=== PATIENT | female | born 1990 | race Caucasian/White ===

== ENCOUNTER 2019-03-09 04:34 | Emergency (ER) | payer OTHER ==
[~2019-03-09] VITALS: Ht 147.3 cm; Wt 45.4 kg
[2019-03-09 04:36] VITALS: BP 118/56
--- NOTE | 2019-03-09 04:39 | NUR ---
TO LOBBY A/W BED AMBULATORY
--- NOTE | 2019-03-09 05:10 | NUR ---
PT AMBULATED TO BED 4 WITH PARTNER
--- NOTE | 2019-03-09 05:10 | NUR ---
ASSESSMENT COMPLETED AT THIS TIME. PATIENT SITTING UP IN BED. ASSESSMENT NOTE: PATIENT C/O LUQ PAIN. STATES THE PAIN IS LIKE HER PREVIOUS GALLSTONE ATTACKS. PATIENT STATES HX OF GALL STONES. 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 STATES NO OTHER PMH. NO OTHER SYMPTOMS REPORTED. NO FEVER, COUGH, SOB, OR CHEST PAIN.
[2019-03-09] MEDS ORDERED: LORazepam 2 MG/ML VIAL IM ONE (06:15)
[2019-03-09] MEDS ORDERED: KETOROLAC 30 MG/ML VIAL IM ONE (06:15)
[2019-03-09 06:52] LABS: APPEARANCE,URINE HAZY (CLEAR); BILIRUBIN,URINE NEGATIVE (NEGATIVE); BLOOD, URINE NEGATIVE (NEGATIVE); COLOR,URINE YELLOW (YELLOW); LEUKOCYTE ESTERASE ,URINE TRACE (NEGATIVE); NITRITE, URINE POSITIVE (NEGATIVE); UGLUCOSE NEGATIVE (NEGATIVE)
[2019-03-09 07:12] VITALS: BP 115/52
[2019-03-09 07:12] LABS: RBC,URINE 0-5 /HPF (0-5)
--- NOTE | 2019-03-12 13:53 | NUR ---
URINE CULTURE RECEIVED, PT DISCHARGED ON CIPRO, C&S SHOWS SENSITIVITY TO CIPRO AND NO NEW ORDERS NEEDED AT HIS TIME. PT RECEIVED APPROPRIATE TX.
== END 2019-03-09 07:13 | disposition home or self-care (01) ==
LOC: MED 04:34
DX: N39.0 Urinary tract infection, site not specified (principal); K21.9 Gastro-esophageal reflux disease without esophagitis; J45.909 Unspecified asthma, uncomplicated
CPT/HCPCS: 81001; 81025; 87086; 87186; 96372; 99283; J1885

== ENCOUNTER 2019-12-19 13:35 | Emergency (ER) | payer MEDICAID, OTHER ==
[~2019-12-19] VITALS: Ht 147.3 cm; Wt 72.6 kg
--- NOTE | 2019-12-19 13:52 | NUR ---
Patient ambulated to bed 7. RN evaluating patient at bedside.
[2019-12-19 13:57] VITALS: BP 136/90
--- NOTE | 2019-12-19 14:05 | NUR ---
PT C/O SHARP RUQ PAIN X 1 DAY. REPORTS HX OF GALLSTONES. PT REPORTS THAT PAIN IN SIMILAR TO EPISDOES SHES HAD IN THE PAST. REPORTS [place], DENIES VOMITTING. PT STATES THE PAIN WORSENED BY CURTAIN MOVEMENTS.
[2019-12-19] MEDS ORDERED: KETOROLAC 30 MG/ML VIAL IVP ONE (14:15)
[2019-12-19] MEDS ORDERED: ONDANSETRON 4 MG/2 ML VIAL IVP ONE (14:15)
--- NOTE | 2019-12-19 14:21 | NUR ---
US tech at bedside for exam.
--- NOTE | 2019-12-19 14:29 | NUR ---
US IS AT BEDSIDE.
[2019-12-19 14:45] LABS: BASOPHILS % (AUTO) 0.2 % (0.0-2.0); EOSINOPHILS # (AUTO) 0.1 K/uL (0-0.4); EOSINOPHILS % (AUTO) 1.4 % (0.0-4.0); HEMATOCRIT 40.2 % (36-48); HEMOGLOBIN 13.1 g/dL (12.0-16.0); LYMPHOCYTES # (AUTO) 2.4 K/uL (2.5-16.5); LYMPHOCYTES % (AUTO) 30.7 % (20.5-51.1); MEAN CORPUSCULAR HEMOGLOBIN 27 pg (27-31); MEAN CORPUSCULAR HGB CONC 33 g/dL (33-37); MEAN CORPUSCULAR VOLUME 81.9 fL (80-94); MONOCYTES # (AUTO) 0.5 K/uL (0.8-1.0); MONOCYTES % (AUTO) 5.8 % (1.7-9.3); NEUTROPHILS # (AUTO) 4.8 K/uL (1.8-7.7); NEUTROPHILS % (AUTO) 61.9 % (42.2-75.2); PLATELET COUNT (AUTO) 266 K/uL (140-450); RED CELL DISTRIBUTION WIDTH 14.7 % (11.6-13.7); WHITE BLOOD COUNT (AUTO) 7.8 K/uL (4.8-10.8)
[2019-12-19] MEDS ORDERED: MORPHINE SULFATE 4 MG/ML SYR IVP ONE (14:45)
[2019-12-19] MEDS ORDERED: NACL 0.9% 1,000 ML IV ONE (14:45)
[2019-12-19 15:10] LABS: ALBUMIN 3.7 g/dL (3.4-5.0); ANION GAP 12.1 (8-16); CARBON DIOXIDE 26.8 mmol/L (21-32); CREATININE 0.6 mg/dL (0.6-1.3); POTASSIUM 3.9 mmol/L (3.5-5.1); TOTAL BILIRUBIN 0.3 mg/dL (0.0-1.0)
[2019-12-19 15:54] VITALS: BP 91/51
--- NOTE | 2019-12-19 15:54 | NUR ---
Patient discharged with v/s stable. Written and verbal after care instructions given and explained. Patient alert, oriented and verbalized understanding of instructions. Ambulatory with steady gait. All questions addressed prior to discharge. ID band removed. Patient advised to follow up with PMD. Rx of Zofran and [place] given. Patient educated on indication of medication including possible reaction and side effects. Opportunity to ask questions provided and answered.
== END 2019-12-19 15:54 | disposition home or self-care (01) ==
LOC: MED 13:35
DX: K80.50 Calculus of bile duct without cholangitis or cholecystitis without obstruction (principal); R10.9 Unspecified abdominal pain; J45.909 Unspecified asthma, uncomplicated; K21.9 Gastro-esophageal reflux disease without esophagitis
CPT/HCPCS: 36415; 76705; 80053; 83690; 85025; 96361; 96374; 96375; 99284; J1885; J2270; J2405; J7030; Q0092

== ENCOUNTER 2021-06-18 20:38 | Emergency (ER) | payer MEDICAID ==
[~2021-06-18] VITALS: Ht 147.3 cm; Wt 74.8 kg
--- NOTE | 2021-06-18 20:43 | NUR ---
PT W/C ASSISTED TO LOBBY
[2021-06-18 20:44] VITALS: BP 139/85
--- NOTE | 2021-06-18 22:38 | NUR ---
PT W/C ASSISTED TO BED #12
--- NOTE | 2021-06-18 23:27 | NUR ---
ER MD AT BEDSIDE FOR ASSESSMENT
[2021-06-18] MEDS ORDERED: HYDROXYZINE HYDROCHLORIDE 25 MG TAB PO STA (23:36)
[2021-06-19] MEDS ORDERED: HYDR-635 PO (00:10)
--- NOTE | 2021-06-19 00:14 | NUR ---
Patient discharged with v/s stable. Written and verbal after care instructions given and explained. Patient alert, oriented and verbalized understanding of instructions. Ambulatory with steady gait. All questions addressed prior to discharge. ID band removed. Patient advised to follow up with PMD. Rx of HYDROXYZINE given. Patient educated on indication of medication including possible reaction and side effects. Opportunity to ask questions provided and answered.
[2021-06-19 00:15] VITALS: BP 139/85
== END 2021-06-19 00:14 | disposition home or self-care (01) ==
LOC: MED 20:38
DX: F41.9 Anxiety disorder, unspecified (principal); J45.909 Unspecified asthma, uncomplicated; I10 Essential (primary) hypertension; Z79.899 Other long term (current) drug therapy
CPT/HCPCS: 93005; 99283